=== PATIENT | male | born 1965 | race Caucasian/White ===

== ENCOUNTER 2018-02-01 21:36 | Emergency (ER) | payer OTHER ==
[~2018-02-01] VITALS: Ht 182.9 cm; Wt 73.5 kg
[2018-02-01 23:14] VITALS: BP 101/49; PULSE 55; RESP 18; O2SAT 99
[2018-02-02 00:01] VITALS: BP 108/89; PULSE 61; RESP 16; O2SAT 100
[2018-02-02 04:47] VITALS: BP 106/68; PULSE 81; RESP 20; O2SAT 100
--- NOTE | 2018-02-02 10:26 | PD ---
HPI Chief Complaint: Psychiatric Symptoms Time Seen by Provider: 10:01 Travel History International Travel<30 days: No Contact w/Intl Traveler<30days: No Traveled to known affect area: No History of Present Illness HPI 52-year-old male presents under Torres act. He was transferred and medically cleared from another facility. Torres act report states "patient recently admitted 01/27/2018 for auditory hallucinations and suicidal ideation. Seen by psychiatry and cleared as this was thought to be due to low sodium. Now patient comes back to ED by EMS after being found walking around with altered mental status and shirtless. Patient remains confused, refusing all tests and examination. He has tangential thought process, poor attention, and with severe agitation at times. All labs normal with no explanation for his behavior." On my examination the patient does not recall any of this event. He denies suicidal or homicidal ideations. Denies psychiatric history. Denies auditory or visual hallucinations. Denies change in mentation, confusion, disorientation. Denies lightheadedness, dizziness, headache. Denies illicit drug use. Reports occasional alcohol use. Reports tobacco use. Does state that he fell and hit his head on Monday. He said the hospital did a CT of his head and was told it was normal. He says he thinks his symptoms were aggravated by his low sodium. Says his symptoms were relieved when he was given sodium. Onset unknown. Duration unknown. Symptoms are moderate to severe in severity. No primary care provider. No known allergies. Denies significant past medical history. Has no other medical complaints. No other modifying factors or associated signs and symptoms. [facility] Social History Alcohol Use: Yes (occasional) Tobacco Use: Yes Substance Use: No Allergies-Medications (Allergen,Severity, Reaction): Coded Allergies: No Known Allergies (Unverified , 02/01/18) Review of Systems Except as stated in HPI: all other systems reviewed are Neg Physical Exam Narrative GENERAL: Well-nourished, well-developed black male patient, in no acute distress SKIN: Warm and dry. HEAD: Atraumatic. Normocephalic. EYES: Pupils equal and round. ENT: Mucosa pink and moist. NECK: Supple. Trachea midline. CARDIOVASCULAR: Regular rate and rhythm. No murmur appreciated. RESPIRATORY: No accessory muscle use. Clear to auscultation. Breath sounds equal bilaterally. GASTROINTESTINAL: Abdomen soft, non-tender, nondistended. Hepatic and splenic margins not palpable. Bowel sounds are active 4 quadrants. MUSCULOSKELETAL: No obvious deformities. No clubbing. No cyanosis. No edema. NEUROLOGICAL: Awake and alert. Oriented 4. No obvious cranial nerve deficits. Motor grossly within normal limits. Normal speech. Moves all extremities. 5/5 strength to all extremities. PSYCHIATRIC: No delusional thought processes. No hallucinations. Data Data Last Documented VS Vital Signs Date Time Temp Pulse Resp B/P (MAP) Pulse Ox O2 Delivery O2 Flow Rate FiO2 02/02/18 04:47 81 20 106/68 (81) 100 Room Air Orders Orders Diet Regular Basic (02/02/18 Breakfast) Complete Blood Count With Diff (02/02/18 10:18) Comprehensive Metabolic Panel (02/02/18 10:18) Thyroid Stimulating Hormone (02/02/18 10:18) Psych Screen (02/02/18 10:18) Drug Screen, Random Urine (02/02/18 10:18) Alcohol (Ethanol) (02/02/18 10:18) Salicylates (Aspirin) (02/02/18 10:18) Tylenol (Acetaminophen) (02/02/18 10:18) Ct Brain W/O Iv Contrast(Rout) (02/02/18 ) Diet Regular Basic (02/02/18 Lunch) MDM Medical Decision Making Medical Screen Exam Complete: Yes Emergency Medical Condition: Yes Medical Record Reviewed: Yes Differential Diagnosis Altered mental status, hyponatremia, substance-induced mood disorder, medical clearance for psychiatric admission Narrative Course Patient presents under a Torres act. Physical examination and vital signs are essentially unremarkable. Patient has no medical complaints to report. Psych screen has been ordered. Patient was apparently medically cleared by the [facility] facility and sent here for psychiatric evaluation, but there are no lab reports or radiology reports that were sent with the patient. Labs and CT had ordered. If the laboratory results are unremarkable, the patient will be medically cleared for psychiatric evaluation and disposition. Diagnosis Primary Impression: Medical clearance for psychiatric admission Condition: Stable Ольга [place] February 02, 2018 10:26
[2018-02-02 11:05] VITALS: BP 97/54; PULSE 68
--- NOTE | 2018-02-02 11:24 | RADRPT ---
EXAM DATE/TIME: 02/02/2018 11:11 [place] COMPARISON: No previous studies available for comparison. INDICATIONS : Altered mental status. RADIATION DOSE: 56.35 CTDIvol (mGy) MEDICAL HISTORY : None SURGICAL HISTORY : None. ENCOUNTER: Initial ACUITY: 1 day PAIN SCALE: 0/10 LOCATION: cranial TECHNIQUE: Multiple contiguous axial images were obtained of the head. Using automated exposure control and adj ustment of the mA and/or kV according to patient size, radiation dose was kept as low as reasonably a chievable to obtain optimal diagnostic quality images. DICOM format image data is available electro nically for review and comparison. FINDINGS: CEREBRUM: The ventricles are normal for age. No evidence of midline shift, mass lesion, hemorrhage or acute in farction. No extra-axial fluid collections are seen. POSTERIOR FOSSA: The cerebellum and brainstem are intact. The 4th ventricle is midline. The cerebellopontine angle i s unremarkable. EXTRACRANIAL: The visualized portion of the orbits is intact. SKULL: The calvaria is intact. No evidence of skull fracture. CONCLUSION: Normal examination. Quinton Loco MD on February 02, 2018 at 11:22 Board Certified Radiologist. This report was verified electronically.
[2018-02-02 11:33] LABS: AUTOMATED NEUTROPHIL # 3.1 TH/MM3 (1.8-7.7); BASOPHIL # 0.1 TH/MM3 (0-0.2); BASOPHIL % 1.1 % (0.0-2.0); EOSINOPHIL # 0.9 TH/MM3 (0-0.4); HEMATOCRIT 37.4 % (39.0-51.0); HEMOGLOBIN 12.9 GM/DL (13.0-17.0); LYMPH % 34.3 % (9.0-44.0); LYMPHOCYTE # 2.3 TH/MM3 (1.0-4.8); MEAN CELL VOLUME 89.5 FL (80.0-100.0); MEAN CORPUSCULAR HEMOGLOBIN 30.9 PG (27.0-34.0); MEAN CORPUSCULAR HGB CONC 34.6 % (32.0-36.0); MEAN PLATELET VOLUME 7.8 FL (7.0-11.0); MONO % 4.1 % (0.0-8.0); MONOCYTE # 0.3 TH/MM3 (0-0.9); NEUT % 46.5 % (16.0-70.0); PLATELET COUNT 283 TH/MM3 (150-450); RED BLOOD COUNT 4.18 MIL/MM3 (4.50-5.90); RED CELL DISTRIBUTION WIDTH 14.3 % (11.6-17.2); WHITE BLOOD COUNT 6.6 TH/MM3 (4.0-11.0)
[2018-02-02 11:48] LABS: ALBUMIN 3.8 GM/DL (3.4-5.0); BLOOD UREA NITROGEN 13 MG/DL (7-18); CALCIUM 8.9 MG/DL (8.5-10.1); CHLORIDE 97 MEQ/L (98-107); GLUCOSE,RANDOM 135 MG/DL (74-106); SODIUM (NA) 135 MEQ/L (136-145)
[2018-02-02 12:01] LABS: ALKALINE PHOSPHATASE 52 U/L (45-117); ALT (GPT) 45 U/L (12-78); AST (GOT) 32 U/L (15-37); CREATININE 0.94 MG/DL (0.60-1.30); GLOMERULAR FILTRATION RATE 84 ML/MIN (>89); TOTAL BILIRUBIN ADULT 0.5 MG/DL (0.2-1.0); TOTAL PROTEIN 7.5 GM/DL (6.4-8.2)
[2018-02-02 12:50] LABS: ACETAMINOPHEN LESS THAN 2.0 MCG/ML (10.0-30.0)
--- NOTE | 2018-02-02 16:02 | PD ---
Physical Exam Time Seen by Provider: 15:[address] Fontanez has evaluated patient, lifted Torres act and cleared the patient for discharge. Data Data Last Documented VS Vital Signs Date Time Temp Pulse Resp B/P (MAP) Pulse Ox O2 Delivery O2 Flow Rate FiO2 02/02/18 11:05 68 97/54 (68) Room Air 02/02/18 04:47 20 100 Orders Orders Diet Regular Basic (02/02/18 Breakfast) Complete Blood Count With Diff (02/02/18 10:18) Comprehensive Metabolic Panel (02/02/18 10:18) Thyroid Stimulating Hormone (02/02/18 10:18) Psych Screen (02/02/18 10:18) Drug Screen, Random Urine (02/02/18 10:18) Alcohol (Ethanol) (02/02/18 10:18) Salicylates (Aspirin) (02/02/18 10:18) Tylenol (Acetaminophen) (02/02/18 10:18) Ct Brain W/O Iv Contrast(Rout) (02/02/18 ) Diet Regular Basic (02/02/18 Lunch) Diet Regular Basic (02/02/18 Dinner) Labs Laboratory Tests Test 02/02/18 10:25 02/02/18 11:25 White Blood Count 6.6 TH/MM3 Red Blood Count 4.18 MIL/MM3 Hemoglobin 12.9 GM/DL Hematocrit 37.4 % Mean Corpuscular Volume 89.5 FL Mean Corpuscular Hemoglobin 30.9 PG Mean Corpuscular Hemoglobin Concent 34.6 % Red Cell Distribution Width 14.3 % Platelet Count 283 TH/MM3 Mean Platelet Volume 7.8 FL Neutrophils (%) (Auto) 46.5 % Lymphocytes (%) (Auto) 34.3 % Monocytes (%) (Auto) 4.1 % Eosinophils (%) (Auto) 14.0 % Basophils (%) (Auto) 1.1 % Neutrophils # (Auto) 3.1 TH/MM3 Lymphocytes # (Auto) 2.3 TH/MM3 Monocytes # (Auto) 0.3 TH/MM3 Eosinophils # (Auto) 0.9 TH/MM3 Basophils # (Auto) 0.1 TH/MM3 CBC Comment DIFF FINAL Differential Comment Blood Urea Nitrogen 13 MG/DL Creatinine 0.94 MG/DL Random Glucose 135 MG/DL Total Protein 7.5 GM/DL Albumin 3.8 GM/DL Calcium Level 8.9 MG/DL Alkaline Phosphatase 52 U/L Aspartate Amino Transf (AST/SGOT) 32 U/L Alanine Aminotransferase (ALT/SGPT) 45 U/L Total Bilirubin 0.5 MG/DL Sodium Level 135 MEQ/L Potassium Level 4.0 MEQ/L Chloride Level 97 MEQ/L Carbon Dioxide Level 29.0 MEQ/L Anion Gap 9 MEQ/L Estimat Glomerular Filtration Rate 84 ML/MIN Thyroid Stimulating Hormone 3rd Gen 2.370 uIU/ML Salicylates Level LESS THAN 1.7 MG/DL Acetaminophen Level LESS THAN 2.0 MCG/ML Ethyl Alcohol Level LESS THAN 3 MG/DL Urine Opiates Screen NEG Urine Barbiturates Screen NEG Urine Amphetamines Screen NEG Urine Benzodiazepines Screen NEG Urine Cocaine Screen NEG Urine Cannabinoids Screen NEG MDM Supervised Visit with MOHSEN: No Narrative Course Dr. Fontanez has evaluated patient, lifted Brian cruz and cleared the patient for discharge. Patient contracts safety. Denies suicidal or homicidal ideations. Patient will be provided community resource packet to [facility] for follow-up. Has friends and family for support. Patient was medically cleared by alternate provider prior to psych screening. Patient has been evaluated by psychiatry and and is now cleared for discharge. Diagnosis Primary Impression: Delusional behavior due to underlying medical condition Referrals: [facility] (Out patient) [facility] Primary Care Physician Psychiatrist [facility] Patient Instructions: Acute Delirium (ED), Brief Psychotic Disorder (ED), General Instructions Additional Instruction: Contract safety to your self and others Follow-up with psychiatry Follow-up with primary care provider Follow-up with [facility] Return to the emergency department immediately with worsening of symptoms Med/Other Pt SpecificInfo: No Change to Meds, No Meds Exist/No RX given Disposition: 01 DISCHARGE HOME Condition: Stable Ольга [place] Yani GHOTRAP February 02, 2018 16:02
[2018-02-02 16:58] VITALS: BP 115/60
== END 2018-02-02 17:00 | disposition home or self-care (01) ==
LOC: NEPJ 21:36
DX: F22 Delusional disorders (principal); Z72.0 Tobacco use
CPT/HCPCS: 70450; 80053; 80307; 84443; 85025; 99284